=== PATIENT | male | born 1960 | race Caucasian/White ===

== ENCOUNTER 2017-04-18 09:35 | Day surgery (SDC) | payer OTHER ==
[~2017-04-18 09:35] MED LIST: CEFAZOLIN 2 GM/50 ML (PMX) 50 ML IVPB; LIDOCAINE 2% (SDV) 5 ML INJ; SOD CHLORIDE 0.9% 1,000 ML IV
[2017-04-18 11:38] LABS: ADD MAN DIFF? NO
[2017-04-18 11:51] LABS: BASOPHIL # 0.1 10^3/ul (0.0-0.1); BASOPHILS % 1.1 % (0.0-2.0); EOSINOPHILS # 0.1 10^3/ul (0.0-0.5); EOSINOPHILS % 2.2 % (0.0-7.0); HEMATOCRIT 37.6 % (42.0-52.0); HEMOGLOBIN 12.9 g/dl (14.0-18.0); LYMPHOCYTES # 2.3 10^3/ul (0.8-2.9); LYMPHOCYTES % 42.9 % (15.0-51.0); MEAN CORPUSCULAR HEMOGLOBIN 30.4 pg (29.0-33.0); MEAN CORPUSCULAR HGB CONC 34.3 g/dl (32.0-37.0); MEAN CORPUSCULAR VOLUME 88.7 fl (82.0-101.0); MONOCYTE # 0.7 10^3/ul (0.3-0.9); MONOCYTES % 12.1 % (0.0-11.0); NEUTROPHIL # 2.2 10^3/ul (1.6-7.5); NEUTROPHILS % 41.5 % (39.0-77.0); PLATELET COUNT 102 10^3/UL (140-415); POSITIVE DIFF @See below; RED BLOOD COUNT 4.24 10^6/ul (4.70-6.10); RED CELL DISTRIBUTION WIDTH 13.2 % (11.5-14.5)
[2017-04-18 11:51] LABS: WHITE BLOOD COUNT 5.4 10^3/ul (4.8-10.8)
[2017-04-18 12:01] LABS: INR 1.08; PROTIME 14.1 Sec (11.9-14.9); PT RATIO 1.1
[2017-04-18 12:08] LABS: ALANINE AMINOTRANSFERASE 86 IU/L (13-69); ALBUMIN 4.2 g/dl (3.3-4.9); ALBUMIN/GLOBULIN RATIO 1.35; ALKALINE PHOSPHATASE 87 IU/L (42-121); ANION GAP 15 (8-16); ASPARTATE AMINO TRANSFERASE 52 IU/L (15-46); BILIRUBIN,INDIRECT 0.2 mg/dl (0-1.1); BILIRUBIN,TOTAL 0.2 mg/dl (0.2-1.3); CARBON DIOXIDE 26 mmol/L (21-31); CHLORIDE 107 mmol/L (97-110); GLUCOSE 106 mg/dl (70-220); PARTIAL THROMBOPLASTIN TIME 36.1 Sec (25.0-35.0); TOTAL PROTEIN 7.3 g/dl (6.1-8.1)
[2017-04-18 12:16] LABS: BLOOD UREA NITROGEN 17 mg/dl (7-20); CALCIUM 9.5 mg/dl (8.4-10.2); SODIUM 144 mmol/L (135-144)
[2017-04-18] MEDS ORDERED: BUPIVACAINE 0.25% (MPF) 30 ML INJ (12:20)
[2017-04-18] MEDS ORDERED: ROCURONIUM 50 MG INJ ×2 (13:38→15:11)
[2017-04-18] MEDS ORDERED: GLYCOPYRROLATE 0.4 MG INJ (13:38)
[2017-04-18] MEDS ORDERED: CEFAZOLIN 1 GM INJ (13:38)
[2017-04-18] MEDS ORDERED: NEOSTIGMINE 3 MG/3 ML SYRINGE (13:38)
[2017-04-18] MEDS ORDERED: PROPOFOL 20 ML ×2 (13:38→15:11)
[2017-04-18] MEDS ORDERED: ONDANSETRON 4 MG INJ ×2 (13:39→15:36)
[2017-04-18] MEDS ORDERED: FENTAnyl 50 MCG/ML VIAL (13:39)
[2017-04-18] MEDS ORDERED: MIDAZOLAM 1 MG/ML 2 ML INJ (13:39)
[2017-04-18] MEDS ORDERED: DEXAMETHASONE 4 MG/ML 1 ML INJ (13:39)
[2017-04-18] MEDS: LIDOCAINE 1%/EPI 30 ML INJ (15:39)
[2017-04-18] MEDS ORDERED: SUGAMMADEX SODIUM 200 MG/2 ML VIAL IV (15:47)
[2017-04-18] MEDS: HYDROmorphONE (0.2 MG/ML) 10ML SYG IV ×3 (16:14→16:34)
[2017-04-18] MEDS: KETOROLAC 30 MG INJ IV (16:15)
[2017-04-18] MEDS ORDERED: DIPHENHYDRAMINE 50 MG INJ IV (16:30)
[2017-04-18] MEDS ORDERED: ALBUTEROL 0.083% (NEB) 2.5 MG/3 ML AMP HHN (16:30)
[2017-04-18] MEDS ORDERED: OXYCODONE/ACETAMINOPHEN (5/325) TAB PO (16:30)
[2017-04-18] MEDS ORDERED: hydrALAzine 20 MG INJ IV (16:30)
[2017-04-18] MEDS ORDERED: LABETALOL HCL 20MG INJ IV (16:30)
[2017-04-18] MEDS ORDERED: HYDROmorphONE (0.2 MG/ML) 10ML SYG IV ×2 (16:30)
[2017-04-18] MEDS ORDERED: ONDANSETRON 4 MG INJ IV (16:30)
[2017-04-18] MEDS ORDERED: EPHEDrine SULFATE 50 MG/5 ML SYG IV (16:30)
[2017-04-18] MEDS ORDERED: FENTAnyl 50 MCG/ML VIAL IV ×3 (16:30)
[2017-04-18] MEDS ORDERED: MIDAZOLAM 1 MG/ML 2 ML INJ IV (16:30)
[2017-04-18] MEDS ORDERED: METOCLOPRAMIDE 10 MG INJ IV (16:30)
[2017-04-18] MEDS ORDERED: MEPERIDINE 25 MG INJ IV (16:30)
[2017-04-18] MEDS: OXYCODONE/ACETAMINOPHEN (5/325) TAB PO (16:40)
== END 2017-04-18 18:00 | disposition home or self-care (01) ==
LOC: SDS 09:35
DX: K43.2 Incisional hernia without obstruction or gangrene (principal); I10 Essential (primary) hypertension; E78.5 Hyperlipidemia, unspecified
CPT/HCPCS: 49560; 71045; 80053; 85025; 85610; 85730; 88302; 93005